=== PATIENT | male | born 1990 | race American Indian/Alaskan Native ===

== ENCOUNTER 2017-07-07 11:23 | Emergency (ER) | payer SELFPAY ==
[2017-07-07 11:38] VITALS: BP 147/82
[2017-07-07] MEDS ORDERED: MOTRIN PO ONE (13:13)
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
--- NOTE | 2017-07-07 14:02 | XRay Report ---
LEFT ANKLE RADIOGRAPHS INDICATION: Fall with ankle pain. COMPARISON: None similar. FINDINGS: AP, lateral and oblique left ankle radiographs demonstrate intact mortise, malleoli and talar dome contour. Normal soft tissues. CONCLUSION: No acute radiographic abnormality. Thank you for the opportunity to participate in this patient's care.
--- NOTE | 2017-07-07 14:21 | XRay Report ---
THORACIC SPINE: History: Pain. The bones are normally mineralized with well preserved vertebral height, alignment and interspace distances. No paraspinal soft tissue widening is noted. IMPRESSION: Normal study.
--- NOTE | 2017-07-07 14:33 | XRay Report ---
LUMBAR SPINE RADIOGRAPHS: INDICATION: Pain. COMPARISON: None similar. FINDINGS: AP and lateral lumbar spine radiographs demonstrate preserved vertebral body stature, alignment and disc heights. Nonobstructive bowel gas pattern. Normal bilateral SI joints. CONCLUSION: No acute lumbar radiographic abnormality. Thank you for the opportunity to participate in this patient's care.
== END 2017-07-07 15:09 | disposition home or self-care (01) ==
LOC: ED 11:23
DX: S96.911A Strain of unspecified muscle and tendon at ankle and foot level, right foot, initial encounter (principal); S39.012A Strain of muscle, fascia and tendon of lower back, initial encounter; Z91.013 Allergy to seafood; X58.XXXA Exposure to other specified factors, initial encounter; Y93.61 Activity, american tackle football; Y92.89 Other specified places as the place of occurrence of the external cause; Y99.8 Other external cause status
CPT/HCPCS: 72072; 72100; 99283

== ENCOUNTER 2021-07-16 07:07 | Emergency (ER) | payer OTHER ==
[2021-07-16] MEDS ORDERED: IBUPROFEN 800 MG TAB PO ONE (07:51)
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
[2021-07-16 08:22] VITALS: BP 130/89
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
== END 2021-07-16 09:37 | disposition home or self-care (01) ==
LOC: ED 07:07
DX: S13.4XXA Sprain of ligaments of cervical spine, initial encounter (principal); Z91.013 Allergy to seafood; Z79.899 Other long term (current) drug therapy; V89.2XXA Person injured in unspecified motor-vehicle accident, traffic, initial encounter; Y93.89 Activity, other specified; Y92.488 Other paved roadways as the place of occurrence of the external cause; Y99.8 Other external cause status
CPT/HCPCS: 72040; 99283